=== PATIENT | female | born 1990 | race Caucasian/White ===

== ENCOUNTER 2020-02-11 11:10 | Emergency (ER) | payer OTHER, SELFPAY ==
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
[2020-02-11 11:24] VITALS: BP 119/78; PULSE 86; RESP 16; TEMP 36.3
== END 2020-02-11 11:48 | disposition short-term general hospital (02) ==
PROVIDERS: Emergency Provider Nurse Practitioner Family; PCP Physician Assistant
DX: R10.11 Right upper quadrant pain (principal); V40.5XXA Car driver injured in collision with pedestrian or animal in traffic accident, initial encounter
CPT/HCPCS: 81003; 81025; 99213; G0463

== ENCOUNTER 2020-07-19 16:51 | Emergency (ER) | payer OTHER, SELFPAY ==
--- NOTE | 2020-07-19 16:53 | ED.GENADULT ---
HPI - General Adult General Chief complaint: Ear Stated complaint: ear pain Time Seen by Provider: 07/19/20 16:53 Source: patient Mode of arrival: ambulatory Limitations: no limitations History of Present Illness HPI narrative: 30-year-old female patient presents to the [facility] with complaints of left ear pain for the past 3 days. Denies fevers, body aches or chills. Denies any runny nose, stuffy nose or sore throat. Patient states she has taken some Tylenol for the pain here and there. Patient states she takes Singulair daily. Related Data Home Medications Medication Instructions Recorded Confirmed drospirenone-e.estradiol-lm.FA 1 tablet PO DAILY 07/19/20 07/19/20 loratadine 10 mg PO DAILY 07/19/20 07/19/20 montelukast [Singulair] 10 mg PO DAILY 07/19/20 07/19/20 Allergies Allergy/AdvReac Type Severity Reaction Status Date / Time Penicillins Allergy Unknown Rash Verified 07/19/20 17:01 AMOXICILLIN TRIHYDRATE Allergy Unknown RASH Uncoded 07/19/20 17:01 Review of Systems Review of Systems: Narrative: CONSTITUTIONAL: Denies fever, chills, or sweats. EYES: Denies visual changes, redness, or discharge. ENT: Denies rhinorrhea, congestion, sore throat, positive left otalgia. CARDIOVASCULAR: Denies chest pain, palpitations, or edema. RESPIRATORY: Denies cough or dyspnea. GASTROINTESTINAL: Denies abdominal pain, nausea, vomiting, or diarrhea. GENITOURINARY: Denies dysuria or hematuria. SKIN: Denies rash or itching. MUSCULOSKELETAL: Denies back pain, joint pain, or myalgia. NEUROLOGIC: Denies headache, numbness, or weakness. PSYCHIATRIC: Denies anxiety or depression. [facility] Past Medical History Medical History Female reproductive system disorder D&C Migraines Surgical History Surgical History Delivery by section History of orthopedic surgery Left knee History of tonsillectomy Comments At the time of my signature I agree with nursing past medical history, surgical, social, and family history. There is no relevant family history pertinent to the presenting complaint. Exam Narrative: Exam Narrative: GENERAL: Well-appearing, well-nourished, and in no acute distress. HEAD: Normocephalic, atraumatic. EYES: PERRLA and EOMI. ENT: Nares with erythema and edema noted bilaterally, no rhinorrhea or epistaxis. Mucous membranes moist. Posterior pharynx with no erythema, tonsillar Carlos, exudates or lesions present. There is fluid noted behind bilateral TMs but no erythema no evidence of infection at this time. NECK: Supple. No lymphadenopathy CHEST: Clear to auscultation. No respiratory distress. HEART: Regular rate and rhythm. No murmur heard. Normal peripheral pulses. ABDOMEN: Soft, nontender, nondistended, normal active bowel sounds. EXTREMITIES: Normal range of motion. No edema. SKIN: Warm, dry, no rash. NEURO: No focal deficits. Alert and oriented x3. Course Vital Signs Vital signs: Vital Signs Temperature 37.1 C 07/19/20 17:01 Pulse Rate 85 07/19/20 17:01 Respiratory Rate 16 07/19/20 17:01 Blood Pressure 117/79 07/19/20 17:01 Pulse Oximetry 100 07/19/20 17:01 Temperature 37.1 C 07/19/20 17:01 Pulse Rate 85 07/19/20 17:01 Respiratory Rate 16 07/19/20 17:01 Blood Pressure 117/79 07/19/20 17:01 Pulse Oximetry 100 07/19/20 17:01 Vital signs reviewed Medical Decision Making Differential Diagnosis Differential Diagnosis: Differential diagnosis: Otitis media, otitis externa, perforated TM, infection of the outer ear, foreign body or cerumen impaction, ruptured TM, acute mastoiditis, ligament otitis externa, dehydration, pneumonia, sepsis, dental or intraoral infection, TMJ dysfunction Discussed with patient she can continue taking her Singulair daily as well as Tylenol or ibuprofen as needed for pain. Discussed with patient we will go ahead and prescribe
[2020-07-19 17:01] VITALS: BP 117/79; PULSE 85; RESP 16; TEMP 37.1; O2SAT 100
== END 2020-07-19 17:17 | disposition home or self-care (01) ==
PROVIDERS: Emergency Provider Nurse Practitioner Family; PCP Physician Assistant
DX: H73.893 Other specified disorders of tympanic membrane, bilateral (principal)
CPT/HCPCS: 99213; G0463

== ENCOUNTER 2020-10-28 16:50 | Emergency (ER) | payer OTHER, SELFPAY ==
[2020-10-28 17:05] VITALS: BP 119/80; PULSE 95; RESP 16; TEMP 37; O2SAT 100
--- NOTE | 2020-10-28 17:40 | ED.GENADULT ---
HPI - General Adult General Chief complaint: Upper Respiratory Infection Stated complaint: sore throat Source: patient Mode of arrival: ambulatory Limitations: no limitations History of Present Illness HPI narrative: Pleasant 30 y/o female. PMHx: Seasonal Allergies. Presents to [facility] today with acute complaints of nasal congestion and worsening sore throat in the past 48 hours. She tells me that she has been exposed to a nephew whom has just started antibiotics for 'Strep Throat'. No fever, chills. No dysphagia, involuntary drooling. No dyspnea, cough, chest congestion. Pt is speaking fluently, and in full sentences. No oral or airway distress. She is w/o additional acute c/o illness upon PE. Related Data Home Medications Medication Instructions Recorded Confirmed drospirenone-e.estradiol-lm.FA 1 tablet PO DAILY 07/19/20 10/28/20 montelukast [Singulair] 10 mg PO DAILY 07/19/20 10/28/20 Allergies Allergy/AdvReac Type Severity Reaction Status Date / Time Penicillins Allergy Unknown Rash Verified 10/28/20 17:07 AMOXICILLIN TRIHYDRATE Allergy Unknown RASH Uncoded 10/28/20 17:07 Review of Systems Review of Systems: CONSTITUTIONAL: Denies fever, chills, sweats. EYES: Denies visual changes, redness, discharge. ENT: Denies rhinorrhea, congestion, otalgia. Positive Sore throat. CARDIOVASCULAR: Denies chest pain, palpitations, edema. RESPIRATORY: Denies dyspnea, wheezing, cough GASTROINTESTINAL: Denies abdominal pain, nausea, vomiting, diarrhea. GENITOURINARY: Denies dysuria, hematuria, abnormal discharge SKIN: Denies rash or itching. MUSCULOSKELETAL: Denies acute back pain, joint pain, or myalgia. NEUROLOGIC: Denies numbness, or focal weakness. PSYCHIATRIC: Denies anxiety or depression. All systems reviewed & are unremarkable except as noted in HPI and below PMFSH Past Medical History Medical History Female reproductive system disorder D&C Migraines Surgical History Surgical History Delivery by section History of orthopedic surgery Left knee History of tonsillectomy Exam Narrative: GENERAL: This is a well-nourished, well-developed adult, in no apparent distress. HEAD: normocephalic, atraumatic. EYES: PERRL. Sclera clear/white. EARS: External ears normal, auditory canals clear and without drainage, TMs normal. NOSE: External nose normal. Positive Rhinorrhea, no obstruction, nares patent. THROAT: Mucous membranes moist, posterior erythematous. No exudates. Voice hoarse. No oropharyngeal or airway swelling. NECK: Neck supple, non-tender without lymphadenopathy, masses or thyromegaly. CARDIOVASCULAR: Regular rate and rhythm without murmurs, gallops, or rubs. No stridor. RESPIRATORY: Clear to auscultation. Breath sounds equal bilaterally. No wheezes, rales, or rhonchi. GASTROINTESTINAL: Abdomen soft, non-tender, nondistended. Bowel sounds are active. No guarding. SKIN: warm, intact with no suspicious lesions or rash, good texture and turgor. NEURO: No focal neurologic deficits. EXTREMITIES: Negative. Course Course Emergency Course: -30 y/o female. PMHx Seasonal allergies. -Sore throat and positive Streptococcal exposure. -Proceed with Rapid strep analysis. Vital Signs Vital signs: Vital Signs Temperature 37.0 C 10/28/20 17:05 Pulse Rate 95 10/28/20 17:05 Respiratory Rate 16 10/28/20 17:05 Blood Pressure 119/80 10/28/20 17:05 Pulse Oximetry 100 10/28/20 17:05 Temperature 37.0 C 10/28/20 17:05 Pulse Rate 95 10/28/20 17:05 Respiratory Rate 16 10/28/20 17:05 Blood Pressure 119/80 10/28/20 17:05 Pulse Oximetry 100 10/28/20 17:05 Medical Decision Making [facility] Narrative Medical decision making narrative: -Rapid strep is negative, although Rapid analysis may sometimes yield false results, especially in early di
== END 2020-10-28 17:30 | disposition home or self-care (01) ==
PROVIDERS: Emergency Provider Nurse Practitioner Adult Health; PCP Physician Assistant
DX: J02.9 Acute pharyngitis, unspecified (principal); Z20.822 Contact with and (suspected) exposure to COVID-19
CPT/HCPCS: 87081; 87426; 87880; 99213; C9803; G0463

== ENCOUNTER 2021-02-14 22:49 | Emergency (ER) | payer OTHER, SELFPAY ==
--- NOTE | ~2021-02-14 | CT_ITS ---
EXAMINATION: CT abdomen pelvis wo con DATE: 02/14/2021 23:36 INDICATION: Nephrolithiasis presenting with right flank pain TECHNIQUE: Computed tomography (CT) of the abdomen and pelvis was performed without intravenous contr ast. Automated exposure control and iterative reconstruction technique were employed. The dose-length product was 169.88 mGy-cm. COMPARISON: 07/19/2017 FINDINGS: Lung bases are clear. Visualized inferior heart is normal. No pericardial or pleural effusion. Liver, gallbladder, spleen, pancreas and bilateral adrenal glands are normal. 2 mm stone at a lower pole ca lyx of the left kidney. No stones in the right kidney or along the course of the bilateral ureters. N o hydronephrosis. Unchanged small phlebolith in the right hemipelvis. Bladder, retroverted, retroflex ed uterus and bilateral adnexa are unremarkable. Bowels including the appendix are normal. No free in traperitoneal gas or fluid. No pathologically enlarged abdominal or pelvic lymphadenopathy. Bones are unremarkable. IMPRESSION: 1. Nonobstructing 2 mm left renal stone. No right-sided urolithiasis or other acute intra-abdominal/p elvic process. Reviewed, dictated and finalized at location A. ORM CAP OPERATOR IMPRESSION: 1. Nonobstructing 2 mm left renal stone. No right-sided urolithiasis or other a cute intra-abdominal/pelvic process.
[2021-02-14 23:04] VITALS: BP 129/96; PULSE 95; RESP 18; TEMP 36.1; O2SAT 100
[2021-02-14] MEDS: SODIUM CHLORIDE 0.9% IV 1,000 ML 999 ML IV CONT (23:53)
[2021-02-15 00:04] LABS: Basophils Absolute Auto 0.1 K/mm3 (0.0-0.1); Basophils Percent Auto 0.9 % (0.2-1.2); Eosinophils Absolute Auto 0.1 K/mm3 (0-0.3); Eosinophils Percent Auto 1.4 % (0-4.4); Hematocrit 36.8 % (37.0-47.0); Hemoglobin 12.6 g/dL (12.0-15.0); Immature Granulocyte Absolute 0.02 K/mm3 (0.00-0.031); Immature Granulocyte Percent A 0.3 % (0-0.5); Lymphocytes Absolute Auto 3.47 K/mm3 (0.9-3.2); Mean Corpuscular HGB Conc 34.2 g/dl (32-36); Mean Corpuscular Hemoglobin 28.3 pg (26-34); Mean Corpuscular Volume 82.5 fl (80-100); Mean Platelet Volume 9.2 fl (7.4-10.4); Monocytes Absolute Auto 0.8 K/mm3 (0.1-0.6); Monocytes Percent Auto 10.2 % (2.6-8.5); Neutrophils Absolute Auto 3.3 K/mm3 (1.3-6.7); Neutrophils Percent Auto 42.2 % (45.5-73.1); Platelet Count Result 260 k/mm3 (150-375); Red Blood Count 4.46 M/mm3 (4.2-5.4); Red Cell Distribution Width 11.9 % (11.5-14.5); White Blood Count 7.7 K/mm3 (4.5-10.0)
[2021-02-15 00:14] LABS: Alanine Aminotransferase 11 U/L (4-35); Alkaline Phosphatase 37 U/L (38-126); Anion Gap 6 mmol/L (8-16); Aspartate Amino Transferase 20 U/L (14-36); Bilirubin,Total 0.5 mg/dL (0.2-1.3); Blood Urea Nitrogen 13 mg/dL (7-17); Calcium 9.3 mg/dL (8.4-10.2); Carbon Dioxide 25 mmol/L (22-30); Chloride 103 mmol/L (98-107); Estimated CRCL calculation 71 ml/min; Estimated Glomerular Filt Rate > 60; Glucose 86 mg/dL (65-110); Lipase 185 U/L (23-300); Potassium 3.5 mmol/L (3.4-5.0); Sodium 134 mmol/L (137-145)
--- NOTE | 2021-02-15 00:16 | ECG_ITS ---
Measurements Intervals [place] Rate: 72 P: 5 NC: 117 QRS: 94 QRSD: 90 T: 52 QT: 394 QTc: 431 Interpretive Statements SINUS RHYTHM WITH SHORT NC INTERVAL RIGHT AXIS DEVIATION INCOMPLETE RIGHT BUNDLE BRANCH BLOCK BASELINE ARTIFACT- II, III, AVL BORDERLINE ECG Electronically Signed On 02-17-2021 8:00:31 FUNCTIONAL TESTER by Silvano Pickens D.O.
[2021-02-15 00:18] LABS: Add Urine Microscopic? YES; Bilirubin Urine Negative (Negative); Blood Urine 3+ (Negative); Color Urine Red (Yellow); Glucose Urine UA Negative (Negative); Ketones Urine Trace mg/dL (Negative); Leukocyte Esterase Ur Negative LEU/UL (Negative); Nitrate Urine Negative (Negative); Protein Urine 2+ mg/dL (Negative); Specific Grav Ur 1.028 (1.001-1.035); Urobilinogen Urine Negative mg/dL (<2.0)
[2021-02-15 00:19] LABS: Appearance Urine Turbid (Clear)
[2021-02-15 00:22] LABS: RBC Urine >75 /hpf (0-2); WBC Urine 0-3 /hpf (0-3)
[2021-02-15 00:23] LABS: Calcium Oxalate Crystals Urine Present /hpf; Squamous Epithelial Cell Urine Few /hpf (Few)
[2021-02-15 00:24] LABS: Bacteria Urine 1+ /hpf
--- NOTE | 2021-02-15 00:32 | ED.ABDPAIN ---
HPI - Abdominal Pain General Chief Complaint: Abdominal Pain Stated Complaint: right side flank pain voiding blood Time Seen by Provider: 02/14/21 23:14 Source: patient History of Present Illness HPI narrative: Patient presents with abdominal pain and hematuria. Patient reports she has had hematuria for most of the day denies she developed suprapubic abdominal pain and now right flank pain. Social history of stones but does not remember what they feel like. She denies any pain with urination and increased urinary frequency. She denies any fevers, nausea, vomiting, diarrhea she denies any vaginal bleeding Related Data Home Medications Medication Instructions Recorded Confirmed drospirenone-e.estradiol-lm.FA 1 tablet PO DAILY 07/19/20 10/28/20 montelukast [Singulair] 10 mg PO DAILY 07/19/20 10/28/20 Allergies Allergy/AdvReac Type Severity Reaction Status Date / Time Penicillins Allergy Unknown Rash Verified 10/28/20 17:07 AMOXICILLIN TRIHYDRATE Allergy Unknown RASH Uncoded 10/28/20 17:07 Review of Systems Review of Systems: CONSTITUTIONAL: Denies fever, chills, or sweats. EYES: Denies visual changes, redness, or discharge. ENT: Denies rhinorrhea, congestion, sore throat, or otalgia. CARDIOVASCULAR: Denies chest pain, palpitations, or edema. RESPIRATORY: Denies cough or dyspnea. GASTROINTESTINAL: Denies nausea, vomiting, or diarrhea. GENITOURINARY: Denies dysuria or hematuria. SKIN: Denies rash or itching. MUSCULOSKELETAL: Denies joint pain, or myalgia. NEUROLOGIC: Denies headache, numbness, dizziness, or weakness. PSYCHIATRIC: Denies anxiety or depression. All systems reviewed & are unremarkable except as noted in HPI and below PMFSH Past Medical History Medical History Female reproductive system disorder D&C Migraines Surgical History Surgical History Delivery by section History of orthopedic surgery Left knee History of tonsillectomy Exam Narrative: GENERAL: Well-appearing, well-nourished, and in no acute distress. HEAD: Normocephalic, atraumatic. EYES: PERRLA and EOMI. ENT: Nares clear, no rhinorrhea or epistaxis. Mucous membranes moist. NECK: Supple. No masses. No JVD ABDOMEN: Soft, nontender, nondistended, normal active bowel sounds. EXTREMITIES: Normal range of motion. No edema. SKIN: Warm, dry, no rash. NEURO: No focal deficits. Alert and oriented x3. PSYCH: Normal mood and affect. Course Reevaluation(s) Reevaluation #1: Patient is resting comfortably results and plan reviewed with patient. Patient comfortable with outpatient plan. Date: 02/15/21 Time: 00:34 Vital Signs Vital signs: Vital Signs Temperature 36.1 C L 02/14/21 23:04 Pulse Rate 95 02/14/21 23:04 Respiratory Rate 18 02/14/21 23:04 Blood Pressure 129/96 H 02/14/21 23:04 Pulse Oximetry 100 02/14/21 23:04 Temperature 36.1 C L 02/14/21 23:04 Pulse Rate 77 02/15/21 01:00 Respiratory Rate 16 02/15/21 01:00 Blood Pressure 111/74 02/15/21 01:00 Pulse Oximetry 100 02/15/21 01:00 MDM - Abdominal Pain MDM Narrative Medical decision making narrative: H&P as above, vss, pt looks clinically well, exam without CVA tenderness and she has a nonacute abdomen, labs with gross hematuria otherwise clinically unremarkable, img without obstructing ureteral stone, additional labs/img considered, symptomatic relief available as needed, on reevaluation pt continues to looks clinically well. Symptoms remain of unclear etiology patient may have recently passed a stone, patient not describing typical UTI symptoms however given the gross hematuria etiology remains unclear we will empirically treat with antibiotics, dns pyelonephritis consider sepsis, severe dehydration, significant hemorrhage. plan to tx/monitor as op w/ pcm f/u findings/plan discussed with pt, pt agree/comfortable with plan, return prec
[2021-02-15 01:00] VITALS: BP 111/74; PULSE 77; RESP 16; O2SAT 100
== END 2021-02-15 01:00 | disposition home or self-care (01) ==
PROVIDERS: Emergency Provider Emergency Medicine; PCP Physician Assistant
DX: R31.0 Gross hematuria (principal); R10.30 Lower abdominal pain, unspecified; N20.0 Calculus of kidney; I45.10 Unspecified right bundle-branch block
CPT/HCPCS: 36415; 74176; 80053; 81001; 81025; 83690; 85025; 93005; 96361; 96365; 99284; J0131; J7030

== ENCOUNTER 2022-01-30 18:55 | Emergency (ER) | payer OTHER, SELFPAY ==
[2022-01-30 18:59] VITALS: BP 122/79; PULSE 84; RESP 14; TEMP 36.3; O2SAT 100
== END 2022-01-30 21:15 | disposition left against medical advice (07) ==
LOC: ANHED 21:16
PROVIDERS: Emergency Provider Nurse Practitioner Family; PCP Physician Assistant
DX: S39.92XA Unspecified injury of lower back, initial encounter (principal)
CPT/HCPCS: 81025; 99199

== ENCOUNTER 2022-02-10 09:54 | Outpatient (CLI) | payer OTHER, SELFPAY ==
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
== END 2022-02-10 09:55 | disposition home or self-care (01) ==
PROVIDERS: PCP Physician Assistant; Visit Provider Chiropractor
DX: M54.2 Cervicalgia (principal); R51.9 Headache, unspecified
CPT/HCPCS: 72040

== ENCOUNTER 2022-03-21 12:38 | Emergency (ER) | payer OTHER, SELFPAY ==
[2022-03-21 13:28] VITALS: BP 127/80; PULSE 94; RESP 16; TEMP 36.1; O2SAT 100
--- NOTE | 2022-03-21 13:46 | ED.URI ---
HPI - URI/Sore Throat General Chief Complaint: Upper Respiratory Infection Stated Complaint: sore throat Time Seen by Provider: 03/21/22 13:30 Source: patient Mode of arrival: ambulatory Limitations: no limitations History of Present Illness HPI Narrative: Ms. Collins is a 32-year-old female patient presenting to the clinic today with complaints of sore throat. She reports that her son has just tested positive for strep 2 days ago. She reports her symptoms started yesterday. She has not been checking her temperature. MD elicited complaint: sore throat and nasal congestion Related Data Allergies Allergy/AdvReac Type Severity Reaction Status Date / Time Penicillins Allergy Unknown Rash Verified 03/21/22 13:23 AMOXICILLIN TRIHYDRATE Allergy Unknown RASH Uncoded 03/21/22 13:23 Review of Systems Review of Systems: Pertinent positives per HPI. Patient denies any fever, chills, rash, headache, visual changes, dizziness, cough, shortness of breath, chest pain, palpitations, nausea, vomiting, diarrhea, constipation, abdominal pain, or any urinary issues. REPLACED BY [facility] Past Medical History Medical History Female reproductive system disorder D&C Migraines Surgical History Surgical History Delivery by section History of orthopedic surgery Left knee History of tonsillectomy Comments At the time of my signature, I reviewed and agree with the nursing past medical, surgical, social, and family history. There is no relevant family history pertinent to the patient complaint. Exam Narrative: General: Well-developed, well nourished, in no apparent distress Head: Normocephalic, atraumatic Eyes: Pupils equally round and reactive to light bilaterally, EOM intact, sclera and conjunctive clear, no discharge, lids normal Ears: TMs intact and clear, ear canals clear, no drainage, grossly hearing normal. Nose: Nares patent, clear discharge, no inflammation, no sinus tenderness. Mouth: Oral pharynx without lesions or masses, good dentition, MMM. Oropharynx red with mild enlargement of tonsils Neck: Supple, trachea midline, mild enlargement of anterior or posterior cervical nodes, no thyroid masses or goiter palpable. Cardio: Regular rate and rhythm, s1 and s2 normal, no murmur appreciated. Resp: Clear to auscultation bilaterally, no rhonchi, rales, wheezing or rubs Course Course Emergency Course: Portions of this record may have been created with voice recognition software. Level of Care: Express Care Visit Vital Signs Vital signs: Vital Signs Temperature 36.1 C L 03/21/22 13:28 Pulse Rate 94 03/21/22 13:28 Respiratory Rate 16 03/21/22 13:28 Blood Pressure 127/80 03/21/22 13:28 Pulse Oximetry 100 03/21/22 13:28 Temperature 36.1 C L 03/21/22 13:28 Pulse Rate 94 03/21/22 13:28 Respiratory Rate 16 03/21/22 13:28 Blood Pressure 127/80 03/21/22 13:28 Pulse Oximetry 100 03/21/22 13:28 Vital signs reviewed MDM - URI/Sore Throat MDM Narrative Medical decision making narrative: At the time of visit patient is resting comfortably on the exam table. Centor criteria is 3/4 with a positive strep exposure. I will go ahead and treat the patient with a prescription of azithromycin. Supportive measures were discussed with the patient she voiced understanding of discharge instructions and agrees to treatment plan. Differential Diagnosis Differential diagnosis: Likely upper respiratory infection, otitis media, sinusitis, viral infection, bronchitis, influenza, pharyngitis and other (COVID) Discharge Plan Discharge Clinical Impression: Pharyngitis, Exposure to group A Streptococcus Patient Disposition: Home, Self-Care Condition: Stable Instructions: Antibiotic Form, Pharyngitis (ED) Additional Instructions: Take prescription medications only as prescribed-azithrom
== END 2022-03-21 13:54 | disposition home or self-care (01) ==
PROVIDERS: Emergency Provider Nurse Practitioner Family; PCP Physician Assistant
DX: J02.9 Acute pharyngitis, unspecified (principal); Z20.828 Contact with and (suspected) exposure to other viral communicable diseases
CPT/HCPCS: 99213; G0463

== ENCOUNTER 2023-02-02 17:23 | Emergency (ER) | payer OTHER, SELFPAY ==
[2023-02-02 17:40] VITALS: BP 117/83; PULSE 91; RESP 16; TEMP 37.3; O2SAT 100
--- NOTE | 2023-02-02 17:44 | ECG_ITS ---
Measurements Intervals [place] Rate: 81 P: -7 HI: 106 QRS: 94 QRSD: 88 T: 45 QT: 378 QTc: 439 Interpretive Statements SINUS RHYTHM WITH SHORT HI INTERVAL RIGHT AXIS DEVIATION INCOMPLETE RIGHT BUNDLE BRANCH BLOCK BORDERLINE ECG COMPARED TO ECG 02/15/2021 00:16:15 NO SIGNIFICANT CHANGES Electronically Signed On 02-02-2023 20:07:13 HVAC ENGINEERING TECHNICIAN by Silvano Pickens D.O.
--- NOTE | 2023-02-02 17:55 | ED.URI ---
HPI - URI/Sore Throat General Chief Complaint: Upper Respiratory Infection Stated Complaint: No voice;Chest pain Time Seen by Provider: 02/02/23 17:45 Source: patient Mode of arrival: ambulatory Limitations: no limitations History of Present Illness HPI Narrative: Elle is a 33-year-old female patient presenting to clinic today with complaints of having no voice for 1 week and some chest discomfort when trying to project her voice. She denies any shortness of breath or chest pain while at rest. No fever or chills. Denies any cough. Has been placed on azithromycin last week for swollen lymph nodes. She had a strep test done at that time and was negative. States she is still having loss of voice MD elicited complaint: sore throat and nasal congestion Related Data Allergies Allergy/AdvReac Type Severity Reaction Status Date / Time Penicillins Allergy Unknown Rash Verified 02/02/23 17:47 AMOXICILLIN TRIHYDRATE Allergy Unknown RASH Uncoded 02/02/23 17:47 Review of Systems Review of Systems: Pertinent positives per HPI. Patient denies any fever, chills, rash, headache, visual changes, dizziness, cough, runny nose, sore throat, shortness of breath, chest pain, palpitations, nausea, vomiting, diarrhea, constipation, abdominal pain, or any urinary issues. [facility] Past Medical History Medical History Female reproductive system disorder D&C Migraines Surgical History Surgical History Delivery by section History of orthopedic surgery Left knee History of tonsillectomy Comments At the time of my signature, I reviewed and agree with the nursing past medical, surgical, social, and family history. There is no relevant family history pertinent to the patient complaint. Exam Narrative: General: Well-developed, well nourished, in no apparent distress Head: Normocephalic, atraumatic Eyes: Pupils equally round and reactive to light bilaterally, EOM intact, sclera and conjunctive clear, no discharge, lids normal Ears: TMs intact and clear, ear canals clear, no drainage, grossly hearing normal. Nose: Nares patent, clear discharge, no inflammation, no sinus tenderness. Mouth: Oral pharynx mildly red without lesions or masses, good dentition, MMM. Tonsils surgically absent Neck: Supple, trachea midline, no enlargement of anterior or posterior cervical nodes, no thyroid masses or goiter palpable. Cardio: Regular rate and rhythm, s1 and s2 normal, no murmur appreciated. Resp: Clear to auscultation bilaterally, no rhonchi, rales, wheezing or rubs Course Course Emergency Course: Portions of this record may have been created with voice recognition software. Level of Care: Express Care Visit Vital Signs Vital signs: Vital Signs Temperature 37.3 C 02/02/23 17:40 Pulse Rate 91 02/02/23 17:40 Respiratory Rate 16 02/02/23 17:40 Blood Pressure 117/83 02/02/23 17:40 Pulse Oximetry 100 02/02/23 17:40 Temperature 37.3 C 02/02/23 17:40 Pulse Rate 91 02/02/23 17:40 Respiratory Rate 16 02/02/23 17:40 Blood Pressure 117/83 02/02/23 17:40 Pulse Oximetry 100 02/02/23 17:40 Vital signs reviewed MDM - URI/Sore Throat MDM Narrative Medical decision making narrative: At the time of visit patient is resting comfortably on the exam table. I suspect patient has laryngitis/URI/typical chest pain. Chest discomfort is only when she is trying to project her voice. EKG was performed shows sinus rhythm with short FL interval heart rate was 81 beats per minute without ectopy. Will send in prescription for taper prednisone dosing. Supportive measures were discussed with the patient she voiced understanding discharge instructions agrees to treatment plan. Differential Diagnosis Differential diagnosis: Likely upper respiratory infection, otitis media, sinusitis, viral infection
== END 2023-02-02 18:02 | disposition home or self-care (01) ==
PROVIDERS: Emergency Provider Nurse Practitioner Family; PCP Physician Assistant
DX: J04.0 Acute laryngitis (principal); J06.9 Acute upper respiratory infection, unspecified; R07.89 Other chest pain
CPT/HCPCS: 93005; 99213; G0463

== ENCOUNTER 2023-08-24 01:17 | Day surgery (SDC) | payer OTHER, SELFPAY ==
[2023-08-05 11:07] VITALS: BMI 18.9
[2023-08-24 11:45] VITALS: BP 117/75; PULSE 86; RESP 19; TEMP 36.2; O2SAT 100
--- NOTE | 2023-08-24 11:54 | P.PNAN_ITS ---
Anes - Initial Pre Proc Eval Procedure: Operation Date: 08/24/23 12:30 Proposed Procedures p Esophagogastroduodenoscopy - Nelson Navarro MD Date/Time: 08/24/23 11:54 Surgeon: Nelson Navarro MD Pre Op Diagnosis: GERD without esophagitis, Dysphonia Patient Data Age: 33 Gender: F Height: 1.63 m Weight: 51.9 kg Last Vital Signs Temp 97.1 F L 08/24/23 11:45 Pulse 86 08/24/23 11:45 Resp 19 08/24/23 11:45 BP 117/75 08/24/23 11:45 Pulse Ox 100 08/24/23 11:45 O2 Del Method Room Air 08/24/23 11:45 Allergies Allergy/AdvReac Type Severity Reaction Status Date / Time amoxicillin Allergy Unknown Rash Verified 08/24/23 11:44 Penicillins Allergy Unknown Rash Verified 08/24/23 11:44 Home Medications Medication Instructions Recorded Confirmed Type omeprazole 40 mg capsule,delayed 40 mg PO DAILY #30 caps 07/14/23 08/05/23 Rx release Patient hx anesthesia problems: none Family hx anesthesia problems: none Results Review: All pre-operative results and documents have been reviewed as part of the pre- operative evaluation. 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 D&C Migraines Surgical History Surgical History Delivery by section History of orthopedic surgery Left knee History of tonsillectomy Social History Social History Social History: Caffeine-none Smoking status: Never smoker Alcohol intake: never Substance use: never Substance use type: does not use Spiritual care concerns: No Anes - Eval Final PreProcedure Day of Procedure 08/24/23 11:54 Patient weight: normal Heart: regular rate and rhythm Lungs: clear to auscultation Airway: Mallampati scale class II Neurological: alert and oriented Last oral intake: >/= 8 hours ASA classification: II Emergent: no Anesthetic plan: proceed Anesthesia type and monitoring: general GIVS and standard monitoring Results Review: All pre-operative results and documents have been reviewed as part of the pre- operative evaluation. Informed Consent: The patient's anesthetic plan and its attendant risks and benefits were discussed with the patient/family/POA. Questions were solicited and answers provided to the satisfaction of the patient/family/POA.
[2023-08-24] MEDS: LACTATED RINGERS 1,000 ML 150 ML IV CONT (11:56)
--- NOTE | 2023-08-24 12:34 | PM.HPGS ---
History of Present Illness History of Present Illness Consent: Risks, benefits, and alternatives have been discussed and questions answered. Patient agrees to proceed with procedure. 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 D&C Migraines Surgical History Surgical History Delivery by section History of orthopedic surgery Left knee History of tonsillectomy Social History Social History Social History: Caffeine-none Smoking status: Never smoker Alcohol intake: never Substance use: never Substance use type: does not use Spiritual care concerns: No Meds Home Medications and Allergies Home Medications Medication Instructions Recorded Confirmed Type omeprazole 40 mg capsule,delayed 40 mg PO DAILY #30 caps 07/14/23 08/05/23 Rx release Allergies Allergy/AdvReac Type Severity Reaction Status Date / Time amoxicillin Allergy Unknown Rash Verified 08/24/23 11:44 Penicillins Allergy Unknown Rash Verified 08/24/23 11:44 Vital Signs Vital Signs - 24 hr 08/24/23 11:45 Temperature 97.1 F L Pulse Rate 86 Respiratory Rate 19 Blood Pressure 117/75 Pulse Oximetry 100 Oxygen Delivery Room Air Exam Const: General: comfortable and no acute distress HENMT: Face/Nose/Sinus: Normal nares present Eyes: General: appearance normal, both eyes and all related structures Neck: Neck: no JVD Resp: Auscultation: clear to auscultation bilaterally Cardio: Rate: regular rate Rhythm: regular rhythm GI: Inspection: non-distended GI Palp: Yes Soft to palpation Skin: General skin exam: normal color Neuro: General: gait normal Speech: normal speech Extrem: General: normal to inspection Psych: Mental Status: mental status grossly normal Assessment and Plan Assessment and plan (1) Laryngopharyngeal reflux: Code(s): K21.9 - Gastro-esophageal reflux disease without esophagitis Status: Acute Assessment and Plan: egd with bx (2) Dysphonia: Code(s): R49.0 - Dysphonia Status: Acute
[2023-08-24 12:45] VITALS: BP 90/50; PULSE 80; RESP 18; O2SAT 99
[2023-08-24 12:55] VITALS: BP 97/59; PULSE 72; RESP 18; O2SAT 100
[2023-08-24 13:05] VITALS: BP 102/71; PULSE 68; RESP 18; O2SAT 100
== END 2023-08-24 13:13 | disposition home or self-care (01) ==
PROVIDERS: PCP Physician Assistant; Referring Provider Otolaryngology; Visit Provider Internal Medicine Gastroenterology
PROC: 0DJ08ZZ Inspection of Upper Intestinal Tract, Via Natural or Artificial Opening Endoscopic (ICD-10-PCS; CPT 43235; principal; 2023-08-24 12:30)
DX: K21.00 Gastro-esophageal reflux disease with esophagitis, without bleeding (principal); K29.50 Unspecified chronic gastritis without bleeding
CPT/HCPCS: 43239; 88305; J2704; J7120

== ENCOUNTER 2023-09-09 13:33 | Emergency (ER) | payer OTHER, SELFPAY ==
[2023-09-09 13:40] VITALS: BP 104/82; PULSE 98; RESP 14; TEMP 36.6; O2SAT 99
--- NOTE | 2023-09-09 13:44 | ED.EAR ---
HPI - Ear Problem General Chief complaint: Ear Stated complaint: Ear Pain Time Seen by Provider: 09/09/23 13:44 Source: patient Mode of arrival: ambulatory Limitations: no limitations History of Present Illness HPI Narrative: 33-year-old female presented complaint of decreased hearing and intermittent sharp pains to the right ear about 10 days. Denies tinnitus, dizziness, ear drainage, nasal congestion, nausea vomiting, fevers or chills. She used [id number] ear drops yesterday without improvement. MD Complaint: ear pain Related Data Home Medications Medication Instructions Recorded Confirmed pantoprazole 40 mg tablet,delayed 40 mg PO DAILY 09/09/23 09/09/23 release Allergies Allergy/AdvReac Type Severity Reaction Status Date / Time amoxicillin Allergy Unknown Rash Verified 09/09/23 13:37 Penicillins Allergy Unknown Rash Verified 09/09/23 13:37 Review of Systems Review of Systems: CONSTITUTIONAL: Denies malaise, chills, or fever. EYES: Denies visual changes, redness, or discharge. ENT: Denies rhinorrhea, congestion, sinus pain, and sore throat. Reports ear pain CARDIOVASCULAR: Denies chest pain, palpitations, or edema. RESPIRATORY: Denies cough or dyspnea. GASTROINTESTINAL: Denies abdominal pain, nausea, vomiting, diarrhea SKIN: Denies rash or itching. MUSCULOSKELETAL: Denies myalgia. NEUROLOGIC: Denies headache. 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 There is no relevant family history pertinent to the presenting complaint Exam Narrative: GENERAL: Well-appearing EYES: PERRLA, conjunctivae clear ENT: Nares clear. Mucous membranes moist. Left TM pearly reyes with dull light reflex; right TM erythematous, bulging and intact with purulent effusion; canal not erythematous, no drainage no tragal tenderness. Oropharynx not erythematous without lesions. CHEST: Clear to auscultation, breath sounds equal. No wheezing, rhonchi, rales, or stridor. No respiratory distress, speaks in full sentences. HEART: Regular rate and rhythm. No murmur heard. SKIN: Warm, dry, no rash. NEURO: Alert and oriented x3. PSYCH: Normal mood and affect Course Course Emergency Course: Patient is aware of diagnosis, understands and agrees to treatment plan. Anticipatory guidance given. Patient agrees to follow-up as directed and is aware of reasons to seek care at the emergency department. Portions of this record may have been created with voice recognition software Level of Care: Express Care Visit Vital Signs Vital signs: Vital Signs Temperature 97.9 F 09/09/23 13:40 Pulse Rate 98 09/09/23 13:40 Respiratory Rate 14 09/09/23 13:40 Blood Pressure 104/82 09/09/23 13:40 Pulse Oximetry 99 09/09/23 13:40 Oxygen Delivery Room Air 09/09/23 13:40 Temperature 97.9 F 09/09/23 13:40 Pulse Rate 98 09/09/23 13:40 Respiratory Rate 14 09/09/23 13:40 Blood Pressure 104/82 09/09/23 13:40 Pulse Oximetry 99 09/09/23 13:40 Oxygen Delivery Room Air 09/09/23 13:40 Reviewed Medical Decision Making MDM Narrative Medical decision making narrative: Discussed physical exam findings consistent right AOM. Advised supportive measures and signs/symptoms to go to
== END 2023-09-09 13:55 | disposition home or self-care (01) ==
PROVIDERS: Emergency Provider Nurse Practitioner Family; PCP Physician Assistant
DX: H66.91 Otitis media, unspecified, right ear (principal)
CPT/HCPCS: 99213; G0463

== ENCOUNTER 2023-11-24 12:49 | Emergency (ER) | payer OTHER, SELFPAY ==
[2023-11-24 13:01] VITALS: BP 130/89; PULSE 82; RESP 16; TEMP 36.6; O2SAT 100
--- NOTE | 2023-11-24 13:04 | ED.URI ---
HPI - URI/Sore Throat General Chief Complaint: Upper Respiratory Infection Stated Complaint: SORE THROAT Time Seen by Provider: 11/24/23 13:05 Source: patient, RN notes reviewed and old records reviewed Mode of arrival: ambulatory Limitations: no limitations History of Present Illness HPI Narrative: 33 year old female who presents to express care with complaints of sore throat, loss of voice since yesterday with no fevers. Patient reports that she does take Pantoprazole daily for GERD and has had Tonsillectomy and Adenoidectomy in the past. Patient reports that she has not had any body aches, headaches, chills or sweats. Patient reports that she has taken some Tylenol for her symptoms. 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 MD elicited complaint: sore throat and other (loss of voice) Pertinent past history: other (gerd and dysphonia) Onset (ago): day(s) (started yesterday) Pain scale (0-10): 3 Able to tolerate fluids by mouth: Yes Treatments prior to arrival: acetaminophen Related Data Home Medications Medication Instructions Recorded Confirmed pantoprazole 40 mg tablet,delayed 40 mg PO DAILY 09/09/23 11/24/23 release Allergies Allergy/AdvReac Type Severity Reaction Status Date / Time amoxicillin Allergy Unknown Rash Verified 11/24/23 12:55 Penicillins Allergy Unknown Rash Verified 11/24/23 12:55 Review of Systems Review of Systems: CONSTITUTIONAL: Denies malaise, chills, sweats, or fever. EYES: Denies visual changes, redness, or discharge. ENT: Reports rhinorrhea, congestion,no sinus pain,no otalgia and positive sore throat,and hoarseness CARDIOVASCULAR: Denies chest pain, palpitations, or edema. RESPIRATORY: Reports no cough.? Denies dyspnea. GASTROINTESTINAL: Denies abdominal pain, nausea, vomiting, diarrhea SKIN: Denies rash or itching. MUSCULOSKELETAL: Denies myalgia. NEUROLOGIC: Denies headache. 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 There is no relevant family history pertinent to the presenting complaint Exam Narrative: GENERAL: Well-appearing, well-nourished, and in no acute distress. HEAD: Normocephalic EYES: PERRLA, conjunctivae clear ENT: Nares clear, turbinates edematous and erythematous, clear discharge. Mucous membranes moist. TM pearly eryes with dull light reflex bilaterally; no tragal tenderness. Oropharynx erythematous without lesions. Tonsils not present and throat without exudate, no drooling,positive for hoarseness, no trismus, uvula midline.some post nasal discharge. NECK: Supple. No lymphadenopathy CHEST: Clear to auscultation, breath sounds equal. No wheezing, rhonchi, rales, or stridor. No respiratory distress, speaks in full sentences. HEART: Regular rate and rhythm. No murmur heard. SKIN: Warm, dry, no rash. NEURO: Alert and oriented x3. PSYCH: Normal mood and affect Course Course Emergency Course: Patient is aware of diagnosis, understands and agrees to treatment plan.? Anticipatory guidance given.? Patient agrees to follow-up as directed and is aware of reasons to seek care at the emergency department. [place]
[2023-11-24 13:19] LABS: EDSTREPNEGPOS1 Negative
== END 2023-11-24 13:25 | disposition home or self-care (01) ==
PROVIDERS: Emergency Provider Registered Nurse; PCP Physician Assistant
DX: J04.0 Acute laryngitis (principal); J02.9 Acute pharyngitis, unspecified; K21.9 Gastro-esophageal reflux disease without esophagitis
CPT/HCPCS: 87081; 87880; 99213; G0463

== ENCOUNTER 2024-04-10 13:18 | Outpatient (CLI) | payer OTHER, SELFPAY ==
--- NOTE | ~2024-04-10 | XR_ITS ---
XR shoulder LT min 2V Ordering provider: Svetlana Boyd, [place] History: . Pain in lt shoulder PT FELL WEDNESDAY . Comparison: None. FINDINGS: BONES: No acute fracture or dislocation. JOINT SPACES: The acromioclavicular joint is normal. The glenohumeral joint is normal. SOFT TISSUES: Normal. IMPRESSION: No acute osseous abnormality left shoulder. Reviewed, dictated and finalized at location A. TEACHER
== END 2024-04-10 13:19 | disposition home or self-care (01) ==
PROVIDERS: PCP Physician Assistant; Visit Provider Physician Assistant
DX: M25.512 Pain in left shoulder (principal)
CPT/HCPCS: 73030

== ENCOUNTER 2024-09-18 18:17 | Emergency (ER) | payer OTHER, SELFPAY ==
[2024-09-18 18:20] VITALS: BP 112/80; PULSE 86; RESP 16; TEMP 36.8; O2SAT 100
--- NOTE | 2024-09-18 18:32 | ED.SKABFB ---
HPI - Skin/Abscess/Foreign Bdy General Stated complaint: Leg Pain Source: patient and RN notes reviewed Mode of arrival: ambulatory Limitations: no limitations History of Present Illness HPI narrative: Patient is a 34-year-old female who presents to the [facility] with complaints of possible bee sting to the plantar surface of her left foot. She states that she was stung last night. However, she did not remove the stinger for several hours after she was stung. she states that she has pain to the plantar surface of the left foot that radiates up to the posterior lower leg. She reports swelling to the area of the foot that she was stung. Denies difficulty breathing and swallowing. Related Data Home Medications ?Medication ?Instructions ?Recorded ?Confirmed ?Last Taken ?Type pantoprazole 40 mg tablet,delayed 40 mg PO DAILY 09/09/23 11/24/23 Unknown History release Allergies Allergy/AdvReac Type Severity Reaction Status Date / Time amoxicillin Allergy Unknown Rash Verified 11/24/23 12:55 Penicillins Allergy Unknown Rash Verified 11/24/23 12:55 Review of Systems Review of Systems: CONSTITUTIONAL: Denies fever, chills, or sweats. EYES: Denies visual changes, redness, or discharge. ENT: Denies otalgia and sore throat CARDIOVASCULAR: Denies chest pain, palpitations, or edema. RESPIRATORY: Denies cough or dyspnea. GASTROINTESTINAL: Denies abdominal pain, nausea, vomiting, or diarrhea. GENITOURINARY: Denies dysuria or hematuria. SKIN: Reports bee sting to left foot. MUSCULOSKELETAL: Denies back pain, joint pain, or myalgia. NEUROLOGIC: Denies headache, numbness, or weakness. Pertinent positives per HPI. [facility] Past Medical History Medical History GERD (gastroesophageal reflux disease) Female reproductive system disorder D&C Migraines Surgical History Surgical History History of orthopedic surgery Left knee Delivery by section History of tonsillectomy Social History Social History Social History: Caffeine-none Smoking status: Never smoker Alcohol intake: never Substance use: never Substance use type: does not use Spiritual care concerns: No Comments At the time of my signature, I reviewed and agree with the nursing past medical, surgical, social, and family history. There is no relevant family history pertinent to the patient complaint. Exam Narrative: GENERAL: This is a well-nourished, well-developed patient, in no apparent distress. HEAD: normocephalic, atraumatic. EYES: Sclera clear/white. Vision is grossly intact. EARS: External ears normal. Hearing grossly intact. NOSE: External nose normal with no obvious nasal discharge, nares without redness, no rhinorrhea. THROAT: Mucous membranes moist, posterior pharynx clear. NECK: Neck supple, non-tender without lymphadenopathy, masses or thyromegaly. CARDIOVASCULAR: Regular rate and rhythm without murmurs, gallops, or rubs. RESPIRATORY: Clear to auscultation. Breath sounds equal bilaterally. No wheezes, rales, or rhonchi. GASTROINTESTINAL: Abdomen soft, non-tender, nondistended. Bowel sounds are active. No hepato-splenomegaly, or palpable masses. No guarding. SKIN: Possible bee sting to the plantar surface of the left foot with localized reaction of erythema and swelling. No drainage. NEURO: awake, alert, and oriented to person, place and time. There were no obvious focal neurologic abnormalities. Course Course Level of Care: Express Care Visit Vital Signs Vital signs: Vital Signs Temperature 98.3 F 09/18/24 18:20 Pulse Rate 86 09/18/24 18:20 Respiratory Rate 16 09/18/24 18:20 Blood Pressure 112/80 09/18/24 18:20 Pulse Oximetry 100 09/18/24 18:20 Oxygen Delivery Room Air 09/18/24 18:20 Temperature 98.3 F 09/18/24 18:20 Pulse Rate 86 09/18/24 18:20 Respiratory Rate 16 09/18/24 18:20 Blood Pressure 112/80 09/18/24 18:20 Pulse Oximetry 100 09/18/24 18:20 Oxygen Delivery Room Air 09/18/24 18:20 Reviewed MDM - Skin/Abscess/Foreign Bdy MDM Narrative Medical decision making narrative: Wash the area with soap and cool water only. Avoid scratching when possible to prevent worsening of the condition and disruption of the skin that could lead to bacterial infection To relieve itching, place a cool washcloth or some ice over the area that itches, rather than scratching Follow up with primary care provider or seek ER if you have trouble breathing, become hoarse, or start wheezing, develops belly cramps, vomiting or feel dizzy. Differential Diagnosis Differential diagnosis: Likely insect bites, contact dermatitis and other (bee sting, localized reaction) Critical Care Time Critical Care Time Critical Care Time: No Discharge Plan Discharge Clinical Impression: Local reaction to bee sting Patient Disposition: Home Condition: Stable Instructions: Insect Bite or Sting (ED) Additional Instructions: Wash the area with soap and cool water only. Avoid scratching when possible to prevent worsening of the condition and disruption of the skin that could lead to bacterial infection To relieve itching, place a cool washcloth or some ice over the area that itches, rather than scratching Follow up with primary care provider or seek ER if you have trouble breathing, become hoarse, or start wheezing, develops belly cramps, vomiting or feel dizzy. Patient Language: Taiwanese Prescriptions: New prednisone 50 mg tablet 50 mg PO DAILY 5 Days Qty: 5 0RF No Action pantoprazole 40 mg tablet,delayed release (DR/EC) 40 mg PO DAILY methylprednisolone [Medrol (Martín)] 4 mg tablets,dose pack See Rx Instructions .ROUTE .COMPLEX Qty: 21 0RF Rx Instructions: orally per package directions Follow-up/Referrals: PHYSICIAN,BILLET RECORDER [Primary Care Provider] - Time of Disposition: 18:34
== END 2024-09-18 18:36 | disposition home or self-care (01) ==
PROVIDERS: Emergency Provider Nurse Practitioner
DX: T63.441A Toxic effect of venom of bees, accidental (unintentional), initial encounter (principal); K21.9 Gastro-esophageal reflux disease without esophagitis
CPT/HCPCS: 99213; G0463